=== PATIENT | male | born 1940 | race Caucasian/White ===

== ENCOUNTER → 2017-02-26 | Outpatient (CLI) | payer MEDICARE, OTHER ==
[~2017-02-26] MED LIST: ALFU10TA PO; ALLO100T30 PO; CYCL25CA11 PO; DIAZ2TAB3 PO; ERYT250C8 PO; EZET10TA3 PO; FOLI0.4T2 PO; GARL10002 PO; GINK120T3 PO; GLUC-149 PO; HYDR-3138 PO; IRON PO; META800T PO; MULT-516 PO; TADA5TAB2 PO; VIT1TABL PO; hydroeye PO
[2017-02-26 11:09] LABS: PATH.CAST-FLAG NOT PRESENT; SPERM-FLAG NOT PRESENT; SRC-FLAG NOT PRESENT; XTAL-FLAG NOT PRESENT; YLC-FLAG NOT PRESENT
[2017-02-26 11:17] LABS: ASPARTATE AMINO TRANSFERASE 17 U/L (15-37); BLOOD UREA NITROGEN 24 mg/dL (7-18)
== END | disposition home or self-care (01) ==
LOC: STAR 09:48
PROVIDERS: ATTEND Urology
DX: Z01.818 Encounter for other preprocedural examination (principal); N20.0 Calculus of kidney; R79.1 Abnormal coagulation profile
CPT/HCPCS: 36415; 80053; 81001; 85025; 85610; 85730; 87086; 93005

== ENCOUNTER 2017-03-12 05:46 | Day surgery (SDC) | payer MEDICARE, OTHER ==
[2017-02-26 10:28] VITALS: BP 139/79
[~2017-03-12] VITALS: Ht 167.6 cm; Wt 61.5 kg
[2017-03-12] MEDS ORDERED: LACTATED RINGERS 1,000 ML IV SCH (06:31)
[2017-03-12] MEDS ORDERED: FENTANYL PF 100 MCG/2ML ONE (07:36)
[2017-03-12] MEDS ORDERED: ONDANSETRON 2MG/ML, 2ML ONE (07:41)
[2017-03-12] MEDS ORDERED: PROPOFOL 10 MG/ML, 50ML ONE (07:41)
[2017-03-12] MEDS ORDERED: ROCURONIUM 10 MG/ML ONE (07:41)
[2017-03-12] MEDS ORDERED: EPHEDRINE 50 MG/ML, 1ML ONE (07:41)
[2017-03-12] MEDS ORDERED: DEXAMETHASONE 4 MG/ML, 1ML ONE (07:41)
[2017-03-12] MEDS ORDERED: HYDROmorphone 1 MG/ML, 1ML IV PRN (08:30)
[2017-03-12] MEDS ORDERED: OXYcodone 5 MG/5 ML ORAL.SOL UDC PO PRN (08:30)
[2017-03-12] MEDS ORDERED: ONDANSETRON 2MG/ML, 2ML IVPush PRN (08:30)
[2017-03-12] MEDS ORDERED: ACETAMINOPHEN 325 MG TABLET PO PRN (08:30)
[2017-03-12] MEDS ORDERED: FENTANYL PF 100 MCG/2ML IV PRN (08:30)
[2017-03-12] MEDS ORDERED: hydrALAzine 20 MG/ML, 1ML IV PRN (08:30)
[2017-03-12] MEDS ORDERED: LABETALOL 5MG/ML, 20ML IV PRN (08:30)
[2017-03-12] MEDS ORDERED: MIDAZOLAM 1 MG/ML, 2ML IV PRN (08:30)
[2017-03-12] MEDS ORDERED: TEMPLATE NON-FORMULARY MED. (Tadalafil** (Cialis**) 5 MG) PO SCH (09:30)
[2017-03-12] MEDS ORDERED: HYDROcodone/APAP 5/325 TABLET PO PRN (09:30)
[2017-03-12] MEDS ORDERED: TEMPLATE NON-FORMULARY MED. (Metaxalone** 800 MG) PO PRN (09:30)
[2017-03-13] MEDS ORDERED: FOLIC ACID 0.4 MG PO SCH (09:00)
[2017-03-13] MEDS ORDERED: TEMPLATE NON-FORMULARY MED. (Glucosam/Chond/Hyalu/Cf Borate (Move Free Joint Health Tablet PO SCH (09:00)
[2017-03-13] MEDS ORDERED: MULTIVITAMIN 1 TABLET PO SCH (09:00)
[2017-03-13] MEDS ORDERED: [UNRECOGNIZED DRUG - OTHER] PO SCH (09:00)
[2017-03-13] MEDS ORDERED: VIT B6 PO SCH (09:00)
[2017-03-13] MEDS ORDERED: CYCLOPHOSPHAMIDE 25 MG CAPSULE PO SCH (09:00)
[2017-03-13] MEDS ORDERED: GINKGO BILOBA 120 MG PO SCH (09:00)
[2017-03-13] MEDS ORDERED: MAG CIT PO SCH (09:00)
[2017-03-13] MEDS ORDERED: TEMPLATE NON-FORMULARY MED. (Garlic** 1,000 MG) PO SCH (09:00)
[2017-03-13] MEDS ORDERED: HYDROEYE PO SCH (09:00)
[2017-03-13] MEDS ORDERED: EZETIMIBE 10 MG TABLET PO SCH (09:00)
[2017-03-13] MEDS ORDERED: ALLOPURINOL 100 MG TABLET PO SCH (09:00)
[2017-03-13] MEDS ORDERED: TEMPLATE NON-FORMULARY MED. (Alfuzosin Hcl** (Uroxatral**) 10 MG) PO SCH (09:00)
[2017-03-14] MEDS ORDERED: IRON PO SCH (09:00)
== END 2017-03-12 11:35 ==
LOC: OUT 05:46
PROVIDERS: ATTEND Urology
DX: N20.0 Calculus of kidney (principal); E78.00 Pure hypercholesterolemia, unspecified; N40.1 Benign prostatic hyperplasia with lower urinary tract symptoms; N18.9 Chronic kidney disease, unspecified; Z87.39 Personal history of other diseases of the musculoskeletal system and connective tissue; Z98.890 Other specified postprocedural states; Z88.8 Allergy status to other drugs, medicaments and biological substances
CPT/HCPCS: 50590; J1100; J2405; J2704; J3010; J7120